=== PATIENT | female | born 1955 | race Two or more races ===

== ENCOUNTER 2016-06-16 10:27 | Emergency (ER) | payer OTHER | END 2016-06-16 12:43 | disposition home or self-care (01) | DX: R00.2 Palpitations (principal); I10 Essential (primary) hypertension; K21.9 Gastro-esophageal reflux disease without esophagitis; R79.1 Abnormal coagulation profile | CPT/HCPCS: 36415; 80048; 80076; 84484; 85025; 85730; 93005; 99285; A4606; Z7610 ==

== ENCOUNTER 2017-11-03 17:59 | Inpatient (IN) | payer OTHER ==
[~2017-11-03] VITALS: Ht 160 cm; Wt 62.1 kg
[2017-11-03] MEDS ORDERED: MORPHINE SULFATE INJ 2 MG/ML DISP.SYRIN IV ONE (18:30)
[2017-11-03] MEDS ORDERED: ONDANSETRON HCL/PF 4 MG/2 ML VIAL IVP ONE (18:30)
[2017-11-03] MEDS ORDERED: ASPIRIN 81 MG TAB.CHEW PO ONE (18:30)
--- NOTE | 2017-11-03 18:40 | NUR ---
IV ACCESS STARTED. BLOOD DRAWN FOR LABS. MEDICATED ORDERED.
[2017-11-03] MEDS ORDERED: MORPHINE SULFATE INJ 2 MG/ML DISP.SYRIN ONE (18:42)
[2017-11-03] MEDS ORDERED: ONDANSETRON HCL/PF 4 MG/2 ML VIAL ONE (18:42)
[2017-11-03] MEDS ORDERED: ASPIRIN 325 MG TABLET ONE (18:43)
[2017-11-03] MEDS ORDERED: PROP10TA10 PO (18:46)
[2017-11-03] MEDS ORDERED: DEXL60CA3 PO (18:46)
[2017-11-03] MEDS ORDERED: VORT5TAB PO (18:46)
[2017-11-03 18:50] LABS: BASOPHILS # (AUTO) 0.1 /CMM (0.0-0.2); BASOPHILS % (AUTO) 0.8 % (0.0-2.0); EOSINOPHILS % (AUTO) 2.7 % (0.0-6.0); HEMATOCRIT 33 % (33-45); HEMOGLOBIN 11.6 g/dL (11.5-14.8); LYMPHOCYTES # (AUTO) 1.8 /CMM (0.8-4.8); LYMPHOCYTES % (AUTO) 27.7 % (20.0-44.0); MEAN CORPUSCULAR HEMOGLOBIN 31 PG (26.0-33.0); MEAN CORPUSCULAR HGB CONC 35 g/dl (31.0-36.0); MEAN CORPUSCULAR VOLUME 89 fL (82-100); MONOCYTES # (AUTO) 0.6 /CMM (0.1-1.30); MONOCYTES % (AUTO) 8.8 % (2.0-12.0); NEUTROPHILS # (AUTO) 3.7 /CMM (1.8-8.9); PLATELET COUNT (AUTO) 213 /CMM (150-450); RDW COEFFICIENT OF VARIATION 11.5 (11.5-15.0); RED BLOOD CELL COUNT(AUTO) 3.71 MIL/uL (4.0-5.2); WHITE BLOOD COUNT (AUTO) 6.4 K/uL (4.3-11.0)
--- NOTE | 2017-11-03 18:52 | NUR ---
GUNJAN AT BS.
[2017-11-03 19:02] LABS: CARBON DIOXIDE 28 mmol/L (21-32); CHLORIDE 101 mmol/L (98-107); CREATININE 0.8 mg/dL (0.6-1.3); GLUCOSE 110 mg/dL (74-106); POTASSIUM 3.8 mmol/L (3.5-5.1); SODIUM SERUM 135 mmol/L (136-145); UREA NITROGEN, BLOOD 15 mg/dL (7-18)
[2017-11-03 19:12] LABS: TROPONIN I < 0.017 ng/mL (0.00-0.056)
--- NOTE | 2017-11-03 19:19 | NUR ---
REPORT GIVEN TO FRANCIS CHRISTIAN FOR JUAN MIGUEL.
[2017-11-03 19:26] LABS: INR 0.92 (0.85-1.15)
--- NOTE | 2017-11-03 20:35 | NUR ---
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
--- NOTE | 2017-11-03 20:47 | NUR ---
CALLED FOR REPORT. ROOM IS NOT READY.
[2017-11-03] MEDS ORDERED: MAGNESIUM HYDROXIDE 30 ML UDC PO PRN (21:00)
[2017-11-03] MEDS ORDERED: ONDANSETRON HCL/PF 4 MG/2 ML VIAL IVP PRN (21:00)
[2017-11-03] MEDS ORDERED: NITROGLYCERIN 0.4 MG/TAB BOTTLE SL PRN (21:00)
[2017-11-03] MEDS ORDERED: ACETAMINOPHEN 325 MG TABLET PO PRN (21:00)
[2017-11-03] MEDS ORDERED: Z GUARD REMEDY 2 OZ OINT TP PRN (21:00)
[2017-11-03] MEDS ORDERED: MORPHINE SULFATE INJ 2 MG/ML DISP.SYRIN IV PRN (21:00)
[2017-11-03] MEDS ORDERED: MAG HYDROX/AL HYDROX/SIMETH 30 ML UDC PO PRN (21:00)
[2017-11-03] MEDS ORDERED: ZOLPIDEM TARTRATE 5 MG TABLET PO PRN (21:00)
[2017-11-03] MEDS ORDERED: HYDROCODONE/APAP 5/325MG 1 EACH TABLET PO PRN (21:00)
[2017-11-03 21:55] VITALS: BP 148/79
--- NOTE | 2017-11-03 21:55 | NUR ---
RN M/S NOTE RECEIVED PT FROM ER REPORT GIVEN BY FRANCIS, PT PRESENTS SPEECH CLEAR, AOX3, ABLE TO MAKE NEEDS KNOWN, DENIES ANY CHEST PAIN AT THE MOMENT, "I FEEL BETTER." AT BEDSIDE. ON TELE SR, NO S/SX OF RESPIRATORY OR CARDIAC DISTRESS, ON RA, AMBULATORY, SKIN IS DRY AND INTACT. LAC #20G SL, PATENT FLUSHING WELL, SITE CDI. 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 SAFETY MAINTAINED AT ALL TIMES, WILL CONTINUE TO MONITOR FOR ANY CHANGES IN CONDITION.
[2017-11-03] MEDS ORDERED: SIMVASTATIN 40 MG TABLET PO SCH (22:00)
[2017-11-04] VITALS: BP 108/69
[2017-11-04 04:00] VITALS: BP 139/81
[2017-11-04 07:26] LABS: BASOPHILS % (AUTO) 0.6 % (0.0-2.0); EOSINOPHILS % (AUTO) 3.7 % (0.0-6.0); HEMATOCRIT 37 % (33-45); HEMOGLOBIN 12.5 g/dL (11.5-14.8); LYMPHOCYTES # (AUTO) 1.5 /CMM (0.8-4.8); LYMPHOCYTES % (AUTO) 32.5 % (20.0-44.0); MEAN CORPUSCULAR HEMOGLOBIN 30 PG (26.0-33.0); MEAN CORPUSCULAR HGB CONC 34 g/dl (31.0-36.0); MEAN CORPUSCULAR VOLUME 91 fL (82-100); MONOCYTES # (AUTO) 0.3 /CMM (0.1-1.30); MONOCYTES % (AUTO) 7.5 % (2.0-12.0); NEUTROPHILS # (AUTO) 2.6 /CMM (1.8-8.9); NEUTROPHILS % (AUTO) 55.7 % (43.0-81.0); PLATELET COUNT (AUTO) 229 /CMM (150-450); RDW COEFFICIENT OF VARIATION 11.7 (11.5-15.0); WHITE BLOOD COUNT (AUTO) 4.6 K/uL (4.3-11.0)
[2017-11-04] MEDS ORDERED: PANTOPRAZOLE 40 MG TABLET.DR PO SCH (07:30)
[2017-11-04 07:48] LABS: CALCIUM, SERUM 8.5 mg/dL (8.5-10.1); CREATININE 0.8 mg/dL (0.6-1.3); MAGNESIUM 1.9 mg/dL (1.8-2.4); PHOSPHORUS 3.9 mg/dL (2.5-4.9); POTASSIUM 3.8 mmol/L (3.5-5.1)
[2017-11-04 07:51] LABS: THYROID STIMULATING HORMONE 2.216 uIU/mL (0.358-3.74)
[2017-11-04 08:00] VITALS: BP 139/90
[2017-11-04] MEDS ORDERED: ASPIRIN EC 81 MG TABLET.DR PO SCH (09:00)
[2017-11-04] MEDS: PROPRANOLOL HCL 10 MG TABLET PO SCH ×2 (09:31→17:00)
[2017-11-04] MEDS ORDERED: REGADENOSON 0.4 MG/5 ML DISP.SYRIN IVP ONE (10:00)
--- NOTE | 2017-11-04 12:30 | NUR ---
RN NOTES SEEN WITH NEW ORDER FOR STRESS TEST.EXPLAINED TO THE PATIENT.GOT CONSENT.SON WAS AT THE BEDSIDE.
[2017-11-04 16:00] VITALS: BP 93/57
[2017-11-04 17:00] VITALS: BP 93/57
--- NOTE | 2017-11-04 18:00 | NUR ---
RN NOTES SEEN BY WITH NEW ORDERERS FOR DISCHARGE.
--- NOTE | 2017-11-04 18:24 | NUR ---
DISCHARGE NOTE PATIENT DISCHARGED TO HOME IN STABLE CONDITION .NO SOB NO DISTRESS NOTED.DISCHARGE INSTRUCTIONS GIVEN TO THE PATIENT WITH HELP OF THE SON.EXPLAINED ALL INSTRUCTIONS TO BOTH OF THEM.ASKED TO FALLOW UP WITH PCP AND MANAGEMENT RETAIL INTERN ORDERED.ALL BELONGINGS TAKEN BY THE PATIENT AND SIGNED DISCHARGE PAPERWORK AND BELONGING LIST.APPRECIATED THE CARE BY PATIENT AND FAMILY.LEFT WITH SON KATTY IN PRIVATE CAR. Addendum: 11/04/17 at 1831 by NATALI CHING RN PATIENT VOIDEDX3 AND TOOK 500ML FLUID.
== END 2017-11-04 18:18 | disposition home or self-care (01) | DRG 756 ==
LOC: ER 18:01 → TELE1 20:37 → MEDSG1 11-04 10:40
DX: F41.9 Anxiety disorder, unspecified (principal); E87.1 Hypo-osmolality and hyponatremia; I10 Essential (primary) hypertension; Z79.899 Other long term (current) drug therapy; E86.9 Volume depletion, unspecified; F45.9 Somatoform disorder, unspecified
CPT/HCPCS: 36415; 71045-TC; 80048-TC; 80061-TC; 83735-TC; 83880; 84100-TC; 84443-TC; 84484-TC; 85025-TC; 85730-TC; 87081-TC; 93307-TC; A4606; A9502; J2270; J2405; J2785; Z7610